=== PATIENT | female | born 1980 | race Caucasian/White ===

== ENCOUNTER 2018-08-22 10:36 | Inpatient (IN) | payer OTHER ==
[~2018-08-22] VITALS: Ht 152.4 cm; Wt 73.7 kg
[~2018-08-22 10:36] MED LIST: CALC-649 PO; FERR27TA PO; PREN-39 PO
[2018-08-22 11:11] VITALS: Ht 152.4 cm; Wt 73.7 kg
[2018-08-22 11:12] VITALS: BP 111/66; PULSE 71; RESP 18
[2018-08-22] MEDS ORDERED: TERBUTALINE 1 MG/ML INJ SC ONE ×2 (12:00→15:00)
[2018-08-22] MEDS: LACTATED RINGER'S 1,000 ML IV SCH (12:29)
[2018-08-22] MEDS ORDERED: MAGNESIUM SULFATE 4 GM/100 ML 100 ML ONE (15:51)
[2018-08-22] MEDS ORDERED: CEFTRIAXONE 1 GM/50 ML (PMX) 50 ML IVPB ONE (16:00)
[2018-08-22] MEDS ORDERED: MAGNESIUM SULFATE 4 GM/100 ML 100 ML IV ONE (16:30)
[2018-08-22] MEDS: BETAMET NA PHOS/AC(6 MG/ML) 2 ML INJ SYG IM SCH (16:36)
--- NOTE | 2018-08-22 17:24 | HP ---
Date/Time of Note Date/Time of Note DATE: 08/22/18 TIME: 17:21 OB - History Hx of Present Free Text/Dictation 37-year-old female 2 para 1 at 34 weeks and 6 days gestation admitted complaining of onset of uterine contractions started 6:00 in the morning She denies rupture of membranes vaginal bleed Chief Complaint: Uterine contractions Last Menstrual Period: Dec 21, 2017 Estimated Due Date: Sep 27, 2018 : 2 Para: 1 Care: Good Care Ultrasounds: Normal mid trimester US Obstetrical Complications: Gestational Diabetes Medical Complications: None Past Family/Social History * Past Medical, Surgical, Family and Obstetric Histories reviewed from [facility]. Blood Type: A+ Rubella: immune RPR/VDRL: Negative GBS Status: Unknown HBsAG: Negative OB Admission Exam Vital Signs Vital Signs Vital Signs Date Temp Pulse Resp B/P (MAP) Pulse Ox O2 O2 Flow FiO2 Time Delivery Rate 08/22/18 98.3 71 18 111/66 Room Air 11:12 (81) Physical Exam HEENT: WNL Heart: Rhythm Normal Lungs: Clear, Equal Abdomen: WNL Extremities: Normal Reflexes: Normal Cervical Dilatation: 2cm Effacement: 50% Station: -3 Membranes: Intact Heart Rate: 140's Accelerations: Accelerations Present Decelerations: No Decelerations Varibility: Marked Contractions on Admission: < 5 Minutes Apart Date/Time Contractions Began: August 22, 2018 at 6 AM Frequency of Contractions: Every 2 to 3 minutes Duration: Over 1 minute Intensity: Mild Last 72 hours Lab Results CBC & BMP 08/22/18 12:39 OB Assessment/Plan Reason for admission: labor Other Assessment: 34+ weeks gestation labor Other plan: Patient was started on magnesium sulfate for neuro prophylaxis Steroids were given Will probably DC patient home following day after receiving the second dose of steroid WILEY MENJIVAR MD Aug 22, 2018 17:24
[2018-08-22] MEDS: MAGNESIUM SULFATE 20 GM/500 ML 500 ML IV SCH (17:26)
[2018-08-22] MEDS ORDERED: SOD CHLORIDE 0.9% 1,000 ML IV SCH (17:47)
--- NOTE | 2018-08-22 22:49 | NSTRPT ---
NST Information Datetime Report Generated by CPN: 08/22/2018 22:48 Datetime: 08/22/2018 08:30 NST Information EGA: 34.6 Test Number: 1 Time on Monitor: 08/22/2018 09:01 Time off Monitor: 08/22/2018 09:29 NST Duration (Min): 28 Reason for NST Other: Size greater than dates Test and Monitor Explained: Monitor Explained; Test Explained; Verbalized Understanding Pulse: 70 Resp: 18 SBP: 98 DBP: 55 Test Evaluation NST Interventions: None Patient States Movement: Present Contraction Frequency: xq3-4/30-60/mild/pain level 2 FHR Baseline : 130 Variability: Moderate 6-25bpm Accelerations: 15X15 Decelerations: None FHR Category: Category I NST Results: Reactive Provider Notified: Dr Courtney _ Dr Minor Comments: To u/s silviano 19.7 cm cephalic EFW 2497 gm, AC 49%, EFW 40% for GA . [address] Quinonez i re US results _ [facility]. [id number] to Dr Minor Re US results _ [facility]. records _ US report faxe d to triage, report to Ethel Martinez RN Electronically Signed By E-Signature: with User ID: [id number]
[2018-08-22] MEDS: AMOXICILLIN/CLAV 500 MG TAB PO SCH (23:44)
[2018-08-23] MEDS: MAGNESIUM SULFATE 20 GM/500 ML 500 ML IV SCH ×2 (03:44→13:33)
[2018-08-23] MEDS: LACTATED RINGER'S 1,000 ML IV SCH (04:35)
[2018-08-23] MEDS: AMOXICILLIN/CLAV 500 MG TAB PO SCH ×2 (06:46→14:24)
[2018-08-23] MEDS ORDERED: ONDANSETRON 4 MG INJ ONE (11:56)
[2018-08-23] MEDS ORDERED: ONDANSETRON 4 MG INJ IV STA (11:58)
[2018-08-23] MEDS ORDERED: ONDANSETRON 4 MG INJ IV PRN (12:00)
[2018-08-23] MEDS ORDERED: NIFEdipine 10 MG CAP ONE (16:29)
[2018-08-23] MEDS: BETAMET NA PHOS/AC(6 MG/ML) 2 ML INJ SYG IM SCH (16:38)
--- NOTE | 2018-08-23 16:53 | DS ---
Date/Time of Note Date/Time of Note DATE: 08/23/18 TIME: 16:52 Obstetrical Discharge Record Final Diagnosis Final Diagnosis: not delivered Other Final Diagnosis labor Complications Tocolytics: Magnesium Sulfate, Terbutaline, Other (Nifedipine) Condition on Discharge Physical Assessment Voiding: Yes Bowel Movement: Yes Breast: Soft, non-tender, Filling Fundus: Other () Abdomen and Incision: Abdomen is gravid fundal height is 36 and heart tones are reactive Calf Tenderness: No Patient Condition: Good WILEY MENJIVAR MD Aug 23, 2018 16:53
[2018-08-23] MEDS ORDERED: NIFE10CA PO (16:54)
--- NOTE | 2018-08-23 16:55 | PD.PPDC ---
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 Provider Information Physician Information 37-year-old female with gestational diabetes admitted for uterine contractions which were stopped using nifedipine and subcutaneous terbutaline Diagnosis [id number] Final Diagnosis: Kqzsq9w contractions Condition [id number] Patient Condition: Xajbl3z Good Diet Bsaxv9Or Diet: Okxbt7i Special Diet Special Diet: 2000-calorie ADA Activity/Restrictions [id number] Activity: Psjjv9z Bedrest May Shower Ddzyf7Uv Restrictions: Dgebd7c Nothing in the Vagina [id number] Return to Work or School: Prqxn0k Nov 21, 2018 Follow-up Follow-up with Physician: 1, Day/Days (In clinic) Return to clinic for Comment: Refer to OB triage in case of onset of uterine contractions and/or a spontaneous rupture of membrane WILEY MENJIVAR MD Aug 23, 2018 16:55
[2018-08-23] MEDS ORDERED: NIFEdipine 10 MG CAP PO SCH (17:00)
== END 2018-08-23 20:11 | disposition home or self-care (01) | DRG 833 ==
LOC: OBT 10:36 → L-D 10:37 → OBT 15:30 → L-D 17:05
PROVIDERS: ADMIT Obstetrics & Gynecology; ATTEND Obstetrics & Gynecology
DX: O60.03 Preterm labor without delivery, third trimester (principal); Z3A.34 34 weeks gestation of pregnancy; O24.419 Gestational diabetes mellitus in pregnancy, unspecified control
CPT/HCPCS: 36415; 76818; 81001; 83735; 85025; 87086; 96360; 96361; 96372; G0463; J0696; J0702; J2405; J3105; J3475; J7030; J7120

== ENCOUNTER 2018-09-19 19:31 | Inpatient (IN) | payer OTHER ==
[~2018-09-19] VITALS: Ht 152.4 cm; Wt 75.9 kg
[~2018-09-19 19:31] MED LIST changes: -CALC-649 PO; +CALC600T24 PO; +FERR134T PO; -FERR27TA PO; +IBUP-1542 PO; +NIFE10CA PO; +PREN-19 PO; -PREN-39 PO
[2018-09-19 20:08] VITALS: BP 111/64; PULSE 74; RESP 15
[2018-09-19] MEDS ORDERED: LACTATED RINGER'S 1,000 ML IV PRN (21:35)
[2018-09-19] MEDS ORDERED: OXYTOCIN 30 UNITS/LR 500 ML IV PRN (22:00)
[2018-09-19] MEDS ORDERED: LIDOCAINE 1% (MPF) 30 ML INJ INJ PRN (22:00)
[2018-09-19] MEDS ORDERED: OXYTOCIN 30 UNITS/LR 500 ML IV SCH ×2 (22:00)
[2018-09-19] MEDS ORDERED: CARBOPROST 250 MCG INJ IM PRN (22:00)
[2018-09-19] MEDS ORDERED: METHYLERGONOVINE 0.2 MG INJ IM PRN (22:00)
[2018-09-19] MEDS ORDERED: IBUPROFEN 600 MG TAB PO PRN (22:00)
[2018-09-19] MEDS ORDERED: MISOPROSTOL 200 MCG TAB PR PRN (22:00)
[2018-09-19] MEDS ORDERED: BUTORPHANOL 2 MG INJ IV PRN ×2 (22:00)
[2018-09-19] MEDS ORDERED: AMPICILLIN 2 GM/NS (PMX) 100 ML IV ONE (22:00)
[2018-09-19] MEDS: LACTATED RINGER'S 1,000 ML IV SCH (22:03)
--- NOTE | 2018-09-19 22:27 | TRIAGE ---
OB Triage Datetime Report Generated by CPN: 09/19/2018 22:26 Datetime: 09/19/2018 22:03 Stage of : Labor Labor Evaluation Frequency: 2-4 Monitor Mode: External Duration (sec)2399: 40-60 Quality: Moderate Pattern: Normal: <= 5 Contractions in 10 Minutes Resting Tone Rosholt: Relaxed Heart Rate FHR Baseline Rate: 130 Monitor Mode: External US FHR Baseline Changes: No Baseline Change Variability: Moderate 6-25 bpm Accelerations: 15X15 Decelerations: None Category: Category I Datetime: 09/19/2018 21:30 Stage of : OB Triage Datetime: 09/19/2018 21:19 Labor Evaluation Frequency: 2-6 Monitor Mode: External Duration (sec)2399: 40-80 Quality: Moderate Pattern: Normal: <= 5 Contractions in 10 Minutes Resting Tone Rosh[place]: Relaxed Heart Rate FHR Baseline Rate: 130 Monitor Mode: External US FHR Baseline Changes: No Baseline Change Variability: Moderate 6-25 bpm Accelerations: 15X15 Decelerations: None Category: Category I Datetime: 09/19/2018 21:13 Vaginal Exam Dilatation (cms): 4.0 Datetime: 09/19/2018 20:51 Stage of : OB Triage Monitor Mode: External Heart Rate FHR Baseline Rate: 135 Monitor Mode: External US Vaginal Exam Dilatation (cms): 4.0 Effacement (%): 70 Station: -3 Exam By: Erasto Zee Membrane Status: Intact Vaginal Bleeding: Small Cervix, Consistency: Soft Cervix, Position: Posterior Presentation 'A': Cephalic Datetime: 09/19/2018 20:41 Labor Evaluation Frequency: 2-6 Monitor Mode: External Duration (sec)2399: 60 Quality: Moderate Pattern: Normal: <= 5 Contractions in 10 Minutes Resting Tone Rosh[place]: Relaxed Heart Rate FHR Baseline Rate: 140 Monitor Mode: External US FHR Baseline Changes: No Baseline Change Variability: Moderate 6-25 bpm Accelerations: 15X15 Decelerations: None Category: Category I Datetime: 09/19/2018 19:48 Stage of : OB Triage Maternal Assessment Level of Consciousness: Keenly Alert, Responsive Headache: Denies Blurred Vision: No Respiratory Effort: Unlabored Nausea/Vomiting: Denies RUQ Epigastric Pain: Denies Facial Edema: None Monitor Mode: External Resting Tone Rosh[place]: Relaxed Heart Rate FHR Baseline Rate: 135 Monitor Mode: External US Pain Assessment Pain Scale: 4 Pain Presence: Intermittent Pain Type: Contraction; Pressure Pain Location: Abdomen Datetime: 09/19/2018 19:30 Time of Arrival: 09/19/2018 19:18 EGA: 38.6 Arrived By: Wheelchair Arrived From: Home Chief Complaint: at 38.6 wks c/o ucs and bleeding Movement: Present Contractions: Regular Time Contractions Began: 09/19/2018 17:00 Contractions: q5 Rupture of Membranes: Denies Vaginal Bleeding: Small Vaginal Discharge: Present Recent Sexual Intercouse: Denies Abdominal Trauma: Not Applicable Patient Complaints: Contractions Time Provider Notified: 09/19/2018 21:30 Provider Notified: Dr Carr Initial Plan: EFM,SVE,UA,URINE CULTURE Datetime: 08/23/2018 20:00 Labor Evaluation Frequency: X1 Monitor Mode: External Duration (sec)2399: 60 Quality: Mild Resting Tone Rosh[place]: Relaxed Contraction Comments: PT DENIES FEELING ANY UC'S Heart Rate FHR Baseline Rate: 125 Monitor Mode: External US Variability: Moderate 6-25 bpm Accelerations: 15X15 Decelerations: None Category: Category I Datetime: 08/23/2018 19:20 Stage of : Antepartum Assessment Type: Ongoing Assessment Maternal Assessment Level of Consciousness: Keenly Alert, Responsive DTR's/Clonus: DTRs 2+; No Clonus Headache: Denies Blurred Vision: No Respiratory Effort: Unlabored; Regular Rhythm; Equal Expansion Breath Sounds, Left: Clear and Equal Breath Sounds, Right: Clear and Equal Nausea/Vomiting: Denies RUQ Epigastric Pain: Denies Lower Extremities Edema: None Degree: None Upper Extremities Edema: None Degree: None Facial Edema: None Temperature Route: Oral Fall Risk Assessment History of Falling: (0) No Secondary Diagnosis: (0) No Ambulatory Aid: (0) Bedrest/Nurse Assist IV Therapy: (0) No Gait: (0) Normal/Bedrest/Immobile Mental Status: (0) Oriented to Own Ability Fall Score: 0 Fall Risk Score Definition: No Risk: No action required Pain Assessment Pain Scale: 0 Pain Presence: None/Denies Pain Type: N/A Pain Goal: 3 Datetime: 08/23/2018 18:48 Maternal Assessment Level of Consciousness: Keenly Alert, Responsive Headache: Denies Blurred Vision: No Nausea/Vomiting: Denies RUQ Epigastric Pain: Denies Facial Edema: None Labor Evaluation Frequency: x1 Monitor Mode: External Duration (sec)2399: 70 Quality: Mild Pattern: Normal: <= 5 Contractions in 10 Minutes Resting Tone Rosh[place]: Relaxed Heart Rate FHR Baseline Rate: 120 Monitor Mode: External US FHR Baseline Changes: No Baseline Change Variability: Moderate 6-25 bpm Accelerations: 15X15 Decelerations: None Pain Assessment Pain Scale: 0 Pain Presence: None/Denies Pain Type: N/A Datetime: 08/23/2018 18:00 Maternal Assessment Level of Consciousness: Keenly Alert, Responsive Headache: Denies Blurred Vision: No Nausea/Vomiting: Denies RUQ Epigastric Pain: Denies Facial Edema: None Labor Evaluation Frequency: x3 Monitor Mode: External Duration (sec)2399: 70-90 Quality: Mild Pattern: Normal: <= 5 Contractions in 10 Minutes Resting Tone Rosh[place]: Relaxed Heart Rate FHR Baseline Rate: 125 Monitor Mode: External US FHR Baseline Changes: No Baseline Change Variability: Moderate 6-25 bpm Accelerations: 15X15 Decelerations: None Comments: PERIODS OF BASELINE 115BPM Pain Assessment Pain Scale: 0 Pain Presence: None/Denies Pain Type: N/A Datetime: 08/23/2018 17:02 Maternal Assessment Level of Consciousness: Keenly Alert, Responsive Headache: Denies Blurred Vision: No Nausea/Vomiting: Denies RUQ Epigastric Pain: Denies Facial Edema: None Labor Evaluation Frequency: x3 Monitor Mode: External Duration (sec)2399: 60-100 Quality: Mild Pattern: Normal: <= 5 Contractions in 10 Minutes Resting Tone Rosh[place]: Relaxed Heart Rate FHR Baseline Rate: 115 Monitor Mode: External US FHR Baseline Changes: No Baseline Change Variability: Moderate 6-25 bpm Accelerations: 15X15 Decelerations: None Pain Assessment Pain Scale: 0 Pain Presence: None/Denies Pain Type: N/A Datetime: 08/23/2018 16:36 Pain Assessment Pain Scale: 0 Pain Presence: None/Denies Pain Type: N/A Datetime: 08/23/2018 16:01 Maternal Assessment Level of Consciousness: Keenly Alert, Responsive Headache: Denies Blurred Vision: No Nausea/Vomiting: Denies RUQ Epigastric Pain: Denies Facial Edema: None Labor Evaluation Frequency: x3 Monitor Mode: External Duration (sec)2399: 60-90 Quality: Mild Pattern: Normal: <= 5 Contractions in 10 Minutes Resting Tone R[place]: Relaxed Heart Rate FHR Baseline Rate: 115 Monitor Mode: External US FHR Baseline Changes: No Baseline Change Variability: Moderate 6-25 bpm Accelerations: 15X15 Decelerations: None Datetime: 08/23/2018 15:01 Maternal Assessment Level of Consciousness: Keenly Alert, Responsive DTR's/Clonus: DTRs 1+; No Clonus Headache: Denies Blurred Vision: No Respiratory Effort: Unlabored Breath Sounds, Left: Clear and Equal Breath Sounds, Right: Clear and Equal Nausea/Vomiting: Denies RUQ Epigastric Pain: Denies Facial Edema: None Labor Evaluation Frequency: x2 Monitor Mode: External Duration (sec)2399: 80 Quality: Mild Pattern: Normal: <= 5 Contractions in 10 Minutes Resting Tone Rosh[place]: Relaxed Heart Rate FHR Baseline Rate: 115 Monitor Mode: External US FHR Baseline Changes: No Baseline Change Variability: Minimal - Undetectable to <=5 bpm Accelerations: 15X15 Decelerations: None Pain Assessment Pain Scale: 0 Pain Presence: None/Denies Pain Type: N/A Datetime: 08/23/2018 14:01 Maternal Assessment Level of Consciousness: Keenly Alert, Responsive Headache: Denies Blurred Vision: No Nausea/Vomiting: Denies RUQ Epigastric Pain: Denies Facial Edema: None Labor Evaluation Frequency: OCC Monitor Mode: External Duration (sec)2399: 50-80 Quality: Mild Pattern: Normal: <= 5 Contractions in 10 Minutes Resting Tone R[place]: Relaxed Heart Rate FHR Baseline Rate: 115 Monitor Mode: External US FHR Baseline Changes: No Baseline Change Variability: Moderate 6-25 bpm Accelerations: 15X15 Decelerations: Variable Pain Assessment Pain Scale: 0 Pain Presence: None/Denies Pain Type: N/A Datetime: 08/23/2018 13:01 Maternal Assessment Level of Consciousness: Keenly Alert, Responsive DTR's/Clonus: DTRs 1+; No Clonus Headache: Denies Blurred Vision: No Respiratory Effort: Unlabored Breath Sounds, Left: Clear and Equal Breath Sounds, Right: Clear and Equal Nausea/Vomiting: Denies RUQ Epigastric Pain: Denies Facial Edema: None Labor Evaluation Frequency: 5-30 Monitor Mode: External Duration (sec)2399: 50-70 Quality: Mild Pattern: Normal: <= 5 Contractions in 10 Minutes Resting Tone [place]: Relaxed Heart Rate FHR Baseline Rate: 115 Monitor Mode: External US FHR Baseline Changes: No Baseline Change Variability: Moderate 6-25 bpm Accelerations: 15X15 Decelerations: None Pain Assessment Pain Scale: 4 Pain Presence: Intermittent Pain Type: Contraction Pain Location: Back Datetime: 08/23/2018 12:02 Nausea/Vomiting: Present Datetime: 08/23/2018 11:26 Maternal Assessment Level of Consciousness: Keenly Alert, Responsive Headache: Denies Blurred Vision: No RUQ Epigastric Pain: Denies Facial Edema: None Labor Evaluation Frequency: x2 Monitor Mode: External Duration (sec)2399: 60 Quality: Mild Pattern: Normal: <= 5 Contractions in 10 Minutes Resting Tone Rosh[place]: Relaxed Heart Rate FHR Baseline Rate: 120 Monitor Mode: External US FHR Baseline Changes: No Baseline Change Variability: Moderate 6-25 bpm Accelerations: 15X15 Decelerations: None Pain Assessment Pain Scale: 3 Pain Presence: Intermittent Pain Type: Contraction Pain Location: Back Datetime: 08/23/2018 11:23 Nausea/Vomiting: Present Datetime: 08/23/2018 11:01 Maternal Assessment Level of Consciousness: Keenly Alert, Responsive DTR's/Clonus: DTRs 1+; No Clonus Headache: Denies Blurred Vision: No Nausea/Vomiting: Denies RUQ Epigastric Pain: Denies Facial Edema: None Labor Evaluation Frequency: OCC Monitor Mode: External Duration (sec)2399: 50 Quality: Mild Pattern: Normal: <= 5 Contractions in 10 Minutes Resting Tone Rosh[place]: Relaxed Heart Rate FHR Baseline Rate: 120 Monitor Mode: External US FHR Baseline Changes: No Baseline Change Variability: Moderate 6-25 bpm Accelerations: 15X15 Pain Assessment Pain Scale: 3 Pain Presence: Intermittent Pain Type: Contraction Pain Location: Back Datetime: 08/23/2018 11:00 Monitor Mode: External US Datetime: 08/23/2018 09:59 Maternal Assessment Level of Consciousness: Keenly Alert, Responsive Headache: Denies Blurred Vision: No Nausea/Vomiting: Denies RUQ Epigastric Pain: Denies Facial Edema: None Labor Evaluation Frequency: x3 Monitor Mode: External Duration (sec)2399: 50-80 Quality: Mild Pattern: Normal: <= 5 Contractions in 10 Minutes Resting Tone Rosh[place]: Relaxed Heart Rate FHR Baseline Rate: 120 Monitor Mode: External US FHR Baseline Changes: No Baseline Change Variability: Moderate 6-25 bpm Accelerations: 15X15 Decelerations: Variable Pain Assessment Pain Scale: 0 Pain Presence: None/Denies Pain Type: N/A Datetime: 08/23/2018 09:04 Maternal Assessment Level of Consciousness: Keenly Alert, Responsive DTR's/Clonus: DTRs 1+; No Clonus Headache: Denies Blurred Vision: No Respiratory Effort: Unlabored Breath Sounds, Left: Clear and Equal Breath Sounds, Right: Clear and Equal Nausea/Vomiting: Denies RUQ Epigastric Pain: Denies Facial Edema: None Labor Evaluation Frequency: x3 Monitor Mode: External Duration (sec)2399: 70 Quality: Mild Pattern: Normal: <= 5 Contractions in 10 Minutes Resting Tone Rosh[place]: Relaxed Heart Rate FHR Baseline Rate: 125 Monitor Mode: External US FHR Baseline Changes: No Baseline Change Variability: Moderate 6-25 bpm Accelerations: 15X15 Comments: FHTS OFF MONITOR DUE TO MOVEMENT AND PT POSITION Pain Assessment Pain Scale: 0 Pain Presence: None/Denies Pain Type: N/A Datetime: 08/23/2018 08:02 Maternal Assessment Level of Consciousness: Keenly Alert, Responsive Headache: Denies Blurred Vision: No Nausea/Vomiting: Denies RUQ Epigastric Pain: Denies Facial Edema: None Labor Evaluation Frequency: x2 Monitor Mode: External Duration (sec)2399: 70 Quality: Mild Pattern: Normal: <= 5 Contractions in 10 Minutes Resting Tone Rosh[place]: Relaxed Heart Rate FHR Baseline Rate: 120 Monitor Mode: External US FHR Baseline Changes: No Baseline Change Variability: Moderate 6-25 bpm Accelerations: 15X15 Decelerations: None Pain Assessment Pain Scale: 0 Pain Presence: None/Denies Pain Type: N/A Datetime: 08/23/2018 07:40 Assessment Type: Ongoing Assessment Maternal Assessment Level of Consciousness: Keenly Alert, Responsive DTR's/Clonus: DTRs 1+; No Clonus Headache: Denies Blurred Vision: No Respiratory Effort: Unlabored; Regular Rhythm; Equal Expansion Breath Sounds, Left: Clear and Equal Breath Sounds, Right: Clear and Equal Nausea/Vomiting: Denies RUQ Epigastric Pain: Denies Lower Extremities Edema: None Degree: None Upper Extremities Edema: None Degree: None Facial Edema: None Fall Risk Assessment History of Falling: (0) No Secondary Diagnosis: (0) No Ambulatory Aid: (0) Bedrest/Nurse Assist IV Therapy: (20) Yes (Annotations: INFUSING MAGNESIUM SULFATE @2GM/HR; LR @75ML/HR) Gait: (0) Normal/Bedrest/Immobile Mental Status: (0) Oriented to Own Ability Fall Score: 20 Fall Risk Score Definition: No Risk: No action required Datetime: 08/23/2018 07:34 Monitor Mode: External US Datetime: 08/23/2018 07:33 Monitor Mode: External US Pain Assessment Pain Scale: 0 Pain Presence: None/Denies Pain Type: N/A Datetime: 08/23/2018 06:46 Stage of : Antepartum Labor Evaluation Frequency: Occasional Monitor Mode: External Resting Tone Rosh[place]: Relaxed Heart Rate FHR Baseline Rate: 125 Monitor Mode: External US Variability: Moderate 6-25 bpm Accelerations: 15X15 Decelerations: None Category: Category I Pain Assessment Pain Scale: 0 Pain Presence: None/Denies Pain Type: N/A Pain Relief Measures: Comfort Measures Datetime: 08/23/2018 06:00 Stage of : Antepartum Labor Evaluation Frequency: Occasional Monitor Mode: External Resting Tone Rosh[place]: Relaxed Heart Rate FHR Baseline Rate: 120 Monitor Mode: External US Variability: Moderate 6-25 bpm Accelerations: 15X15 Decelerations: None Category: Category I Pain Assessment Pain Scale: 0 Pain Presence: None/Denies Pain Type: N/A Pain Relief Measures: Comfort Measures Datetime: 08/23/2018 05:30 Maternal Assessment Level of Consciousness: Keenly Alert, Responsive DTR's/Clonus: DTRs 2+; No Clonus Headache: Denies Breath Sounds, Left: Clear and Equal Breath Sounds, Right: Clear and Equal Nausea/Vomiting: Denies RUQ Epigastric Pain: Denies Datetime: 08/23/2018 04:56 Stage of : Antepartum Labor Evaluation Frequency: OCCASIONAL Monitor Mode: External Resting Tone Rosh[place]: Relaxed Heart Rate FHR Baseline Rate: 125 Monitor Mode: External US Variability: Moderate 6-25 bpm Accelerations: 15X15 Decelerations: None Category: Category I Pain Assessment Pain Scale: 0 Pain Presence: None/Denies Pain Type: N/A Pain Relief Measures: Comfort Measures Datetime: 08/23/2018 04:40 Stage of : Antepartum Datetime: 08/23/2018 04:00 Labor Evaluation Frequency: Occasional Monitor Mode: External Resting Tone [place]: Relaxed Heart Rate FHR Baseline Rate: 125 Monitor Mode: External US Variability: Moderate 6-25 bpm Accelerations: 15X15 Decelerations: None Category: Category I Pain Assessment Pain Scale: 0 Pain Presence: None/Denies Pain Type: N/A Pain Relief Measures: Comfort Measures Datetime: 08/23/2018 03:30 Maternal Assessment Level of Consciousness: Keenly Alert, Responsive DTR's/Clonus: DTRs 2+; No Clonus Headache: Denies Breath Sounds, Left: Clear and Equal Breath Sounds, Right: Clear and Equal Nausea/Vomiting: Denies RUQ Epigastric Pain: Denies Datetime: 08/23/2018 03:28 Comments: Loss of contact due to patient sitting up in a chair Datetime: 08/23/2018 03:00 Stage of : Antepartum Labor Evaluation Frequency: Occasional Monitor Mode: External Resting Tone R[place]: Relaxed Heart Rate FHR Baseline Rate: 125 Monitor Mode: External US Variability: Moderate 6-25 bpm Accelerations: 15X15 Decelerations: None Category: Category I Pain Presence: None/Denies Pain Type: N/A Pain Relief Measures: Comfort Measures Datetime: 08/23/2018 01:54 Labor Evaluation Frequency: Occasional Monitor Mode: External Resting Tone R[place]: Relaxed Heart Rate FHR Baseline Rate: 130 Monitor Mode: External US Variability: Moderate 6-25 bpm Accelerations: 15X15 Decelerations: None Category: Category I Pain Assessment Pain Scale: 0 Pain Presence: None/Denies Pain Type: N/A Pain Relief Measures: Comfort Measures Datetime: 08/23/2018 01:30 Maternal Assessment Level of Consciousness: Keenly Alert, Responsive DTR's/Clonus: DTRs 2+; No Clonus Headache: Denies Breath Sounds, Left: Clear and Equal Breath Sounds, Right: Clear and Equal Nausea/Vomiting: Denies RUQ Epigastric Pain: Denies Datetime: 08/23/2018 01:01 Stage of : Antepartum Monitor Mode: External Resting Tone R[place]: Relaxed Heart Rate FHR Baseline Rate: 130 Monitor Mode: External US Variability: Moderate 6-25 bpm Accelerations: 15X15 Decelerations: None Datetime: 08/23/2018 00:31 Stage of : Antepartum Comments: Loss of contact due to patient sitting up in a chair. Datetime: 08/22/2018 23:45 Stage of : Antepartum Datetime: 08/22/2018 23:30 Stage of : Labor Maternal Assessment Level of Consciousness: Keenly Alert, Responsive DTR's/Clonus: DTRs 2+; No Clonus Headache: Denies Breath Sounds, Left: Clear and Equal Breath Sounds, Right: Clear and Equal Nausea/Vomiting: Denies RUQ Epigastric Pain: Denies Labor Evaluation Frequency: 2-6 Monitor Mode: External Duration (sec)2399: 60-100 Resting Tone Rosh[place]: Relaxed Heart Rate FHR Baseline Rate: 135 Monitor Mode: External US Variability: Moderate 6-25 bpm Accelerations: 15X15 Decelerations: None Category: Category I Datetime: 08/22/2018 22:30 Stage of : Antepartum Labor Evaluation Frequency: 2-6 Monitor Mode: External Duration (sec)2399: 50-90 Resting Tone Rosh[place]: Relaxed Heart Rate FHR Baseline Rate: 130 Monitor Mode: External US Variability: Moderate 6-25 bpm Accelerations: 15X15 Decelerations: None Category: Category I Datetime: 08/22/2018 21:30 Stage of : Antepartum Maternal Assessment Level of Consciousness: Keenly Alert, Responsive DTR's/Clonus: DTRs 2+; No Clonus Headache: Denies Breath Sounds, Left: Clear and Equal Breath Sounds, Right: Clear and Equal Nausea/Vomiting: Denies RUQ Epigastric Pain: Denies Datetime: 08/22/2018 20:32 Stage of : Antepartum Labor Evaluation Frequency: 2-5 Monitor Mode: External Duration (sec)2399: 50-100 Resting Tone Rosh[place]: Relaxed Heart Rate FHR Baseline Rate: 130 Monitor Mode: External US Variability: Moderate 6-25 bpm Accelerations: 15X15 Decelerations: None Category: Category I Datetime: 08/22/2018 19:30 Stage of : Antepartum Assessment Type: Ongoing Assessment Maternal Assessment Level of Consciousness: Keenly Alert, Responsive DTR's/Clonus: DTRs 2+; No Clonus Headache: Denies Blurred Vision: No Respiratory Effort: Unlabored; Regular Rhythm; Equal Expansion Breath Sounds, Left: Clear and Equal Breath Sounds, Right: Clear and Equal Nausea/Vomiting: Denies RUQ Epigastric Pain: Denies Lower Extremities Edema: None Degree: None Upper Extremities Edema: None Degree: None Facial Edema: None Fall Risk Assessment History of Falling: (0) No Secondary Diagnosis: (0) No Ambulatory Aid: (0) Bedrest/Nurse Assist Gait: (0) Normal/Bedrest/Immobile Mental Status: (0) Oriented to Own Ability Labor Evaluation Frequency: 4-5 Monitor Mode: External Duration (sec)2399: 50-80 Resting Tone Rosh[place]: Relaxed Heart Rate FHR Baseline Rate: 130 Monitor Mode: External US Variability: Moderate 6-25 bpm Decelerations: None Category: Category I Datetime: 08/22/2018 19:07 Assessment Type: Ongoing Assessment Datetime: 08/22/2018 18:30 Maternal Assessment Level of Consciousness: Keenly Alert, Responsive DTR's/Clonus: DTRs 2+ Headache: Denies Blurred Vision: No Respiratory Effort: Unlabored Nausea/Vomiting: Denies RUQ Epigastric Pain: Denies Facial Edema: None Labor Evaluation Frequency: 7-12 Monitor Mode: External Duration (sec)2399: 20-40 Quality: Mild Resting Tone Rosh[place]: Relaxed Contraction Comments: SPACING OUT, MAGNESIUM IS WORKING Heart Rate FHR Baseline Rate: 135 Monitor Mode: External US Variability: Moderate 6-25 bpm Accelerations: 15X15 Decelerations: None Category: Category I Comments: DR DIALLO HERE TO SEE PT Pain Assessment Pain Scale: 0 Pain Presence: None/Denies Pain Type: N/A Pain Goal: 3 Pain Relief Measures: Comfort Measures Pain Assessment Comments: "i DON'T FEEL ANY UCS" Datetime: 08/22/2018 17:30 Maternal Assessment Level of Consciousness: Keenly Alert, Responsive DTR's/Clonus: DTRs 2+ Headache: Denies Blurred Vision: No Respiratory Effort: Unlabored Nausea/Vomiting: Denies RUQ Epigastric Pain: Denies Facial Edema: None Labor Evaluation Frequency: 6-9 Monitor Mode: External Duration (sec)2399: 20-30 Quality: Mild Resting Tone Rosh[place]: Relaxed Heart Rate FHR Baseline Rate: 145 Monitor Mode: External US Variability: Moderate 6-25 bpm Accelerations: 15X15 Decelerations: None Category: Category I Pain Assessment Pain Scale: 0 Pain Presence: None/Denies Pain Type: N/A Pain Goal: 3 Pain Relief Measures: Comfort Measures Membrane Status: Intact Datetime: 08/22/2018 16:38 Maternal Assessment Level of Consciousness: Keenly Alert, Responsive DTR's/Clonus: DTRs 2+ Headache: Denies Blurred Vision: No Respiratory Effort: Unlabored Nausea/Vomiting: Denies RUQ Epigastric Pain: Denies Facial Edema: None Labor Evaluation Frequency: 3-6 Monitor Mode: External Duration (sec)2399: 30-50 Quality: Mild Resting Tone Rosh[place]: Relaxed Heart Rate FHR Baseline Rate: 135 Monitor Mode: External US Variability: Moderate 6-25 bpm Accelerations: 15X15 Decelerations: None Category: Category I Pain Assessment Pain Scale: 0 Pain Presence: None/Denies Pain Type: N/A Pain Goal: 3 Datetime: 08/22/2018 15:00 Stage of : OB Triage Maternal Assessment Level of Consciousness: Keenly Alert, Responsive Labor Evaluation Frequency: IRREGULAR Monitor Mode: External Duration (sec)2399: 50-70 Quality: Mild Resting Tone Rosh[place]: Relaxed Heart Rate FHR Baseline Rate: 135 Monitor Mode: External US Variability: Moderate 6-25 bpm Accelerations: 15X15 Decelerations: None Category: Category I Pain Assessment Pain Scale: 1 Pain Presence: Intermittent Pain Type: Cramping Pain Location: Abdomen Pain Goal: 3 Membrane Status: Intact Vaginal Bleeding: None Datetime: 08/22/2018 14:15 Labor Evaluation Frequency: 3-4 Pattern: Normal: <= 5 Contractions in 10 Minutes Contraction Comments: irreg. pattern Heart Rate FHR Baseline Rate: 135 Monitor Mode: External US Variability: Moderate 6-25 bpm Accelerations: 15X15 Category: Category I Datetime: 08/22/2018 13:56 Vaginal Exam Dilatation (cms): 2.0 Effacement (%): 40 Station: -2 Exam By: CLAUDIO Vaginal Bleeding: Scant Cervix, Consistency: Moderate Cervix, Position: Midposition Datetime: 08/22/2018 13:00 Stage of : OB Triage Maternal Assessment Level of Consciousness: Keenly Alert, Responsive Labor Evaluation Frequency: 7UC/HR Monitor Mode: External Duration (sec)2399: 30-100 Quality: Mild Resting Tone Rosh[place]: Relaxed Heart Rate FHR Baseline Rate: 135 Monitor Mode: External US Variability: Moderate 6-25 bpm Accelerations: 15X15 Decelerations: None Category: Category I Pain Assessment Pain Scale: 1 Pain Presence: Intermittent Pain Type: Cramping Pain Location: Abdomen Pain Goal: 3 Membrane Status: Intact Vaginal Bleeding: None Datetime: 08/22/2018 12:00 Stage of : OB Triage Maternal Assessment Level of Consciousness: Keenly Alert, Responsive Labor Evaluation Frequency: 2-3 Monitor Mode: External Duration (sec)2399: 50-90 Quality: Mild Resting Tone Rosh[place]: Relaxed Heart Rate FHR Baseline Rate: 135 Monitor Mode: External US Variability: Moderate 6-25 bpm Accelerations: 15X15 Decelerations: None Category: Category I Pain Assessment Pain Scale: 1 Pain Presence: Intermittent Pain Type: Cramping Pain Location: Abdomen Pain Goal: 3 Membrane Status: Intact Vaginal Bleeding: None Datetime: 08/22/2018 11:08 Assessment Type: Triage Maternal Assessment Level of Consciousness: Keenly Alert, Responsive DTR's/Clonus: DTRs 2+; No Clonus Headache: Denies Blurred Vision: No Respiratory Effort: Unlabored; Regular Rhythm; Equal Expansion Breath Sounds, Left: Clear and Equal Breath Sounds, Right: Clear and Equal Nausea/Vomiting: Denies RUQ Epigastric Pain: Denies Lower Extremities Edema: None Degree: None Upper Extremities Edema: None Degree: None Facial Edema: None Fall Risk Assessment History of Falling: (0) No Secondary Diagnosis: (0) No Ambulatory Aid: (0) Bedrest/Nurse Assist IV Therapy: (0) No Gait: (0) Normal/Bedrest/Immobile Mental Status: (0) Oriented to Own Ability Fall Score: 0 Fall Risk Score Definition: No Risk: No action required Datetime: 08/22/2018 11:07 Monitor Mode: External Monitor Mode: External US Datetime: 08/22/2018 10:59 Time of Arrival: 08/22/2018 10:31 EGA: 34.6 Arrived By: Ambulatory Arrived From: Other Unit in Hospital Chief Complaint: PT. S[facility] Movement: Present Contractions: Irregular Rupture of Membranes: Denies Vaginal Bleeding: None Vaginal Discharge: Denies Recent Sexual Intercouse: Denies Abdominal Trauma: Not Applicable Patient Complaints: Contractions; Cramping; Back Pain Time Provider Notified: 08/22/2018 11:59 Provider Notified: IMANI Initial Plan: CBC/SVE/IV HYDRATION/TERB/
[2018-09-19] MEDS ORDERED: MINERAL OIL LIGHT 10 ML VIAL TOP PRN (22:30)
[2018-09-20] MEDS: LACTATED RINGER'S 1,000 ML IV SCH ×2 (01:33→10:53)
[2018-09-20] MEDS: AMPICILLIN 1 GM/NS (PMX) 50 ML IV SCH ×5 (02:02→18:23)
[2018-09-20] MEDS ORDERED: OXYTOCIN 30 UNITS/LR 500 ML IV SCH (14:00)
--- NOTE | 2018-09-20 17:24 | HP ---
Date/Time of Note Date/Time of Note DATE: 09/20/18 TIME: 17:21 OB - History Hx of Present Free Text/Dictation 37-year-old female 2 para 1 at 39 weeks gestation admitted complaining of onset of uterine contractions started few hours prior to admission Patient contractions were mild but every 2 to 3 minutes Last Menstrual Period: Dec 21, 2017 Estimated Due Date: Sep 27, 2018 : 2 Para: 1 Care: Good Care Ultrasounds: Normal mid trimester US Obstetrical Complications: None, Other (Advanced maternal age) Medical Complications: None Past Family/Social History * Past Medical, Surgical, Family and Obstetric Histories reviewed from chart. Blood Type: A+ Rubella: immune RPR/VDRL: Negative HBsAG: Negative OB Admission Exam Vital Signs Vital Signs Vital Signs Date Temp Pulse Resp B/P (MAP) Pulse Ox O2 O2 Flow FiO2 Time Delivery Rate 09/19/18 98.1 74 15 111/64 Room Air 20:08 (80) Physical Exam HEENT: WNL Heart: Rhythm Normal Lungs: Clear, Equal Abdomen: WNL Extremities: Normal Reflexes: Normal Cervical Dilatation: 3cm Effacement: 75% Station: -3 Membranes: Intact Heart Rate: 140's Accelerations: Accelerations Present Decelerations: No Decelerations Varibility: Marked Contractions on Admission: < 5 Minutes Apart Date/Time Contractions Began: 1700 p.m. of 729 Frequency of Contractions: Every 3 to 4 minutes Duration: Over 32nd Intensity: Mild Last 72 hours Lab Results CBC & BMP 09/19/18 22:03 OB Assessment/Plan Other Assessment: Term gestation in labor contractions Other plan: Continue with a spontaneous labor and augment labor if necessary WILEY MENJIVAR MD Sep 20, 2018 17:24
[2018-09-20] MEDS ORDERED: KETOROLAC 30 MG INJ IV STA (19:36)
[2018-09-20] MEDS ORDERED: ACETAMINOPHEN 500 MG TAB PO STA (19:36)
--- NOTE | 2018-09-20 19:36 | LDN ---
Date/Time of Note Date/Time of Note DATE: 09/20/18 TIME: 19:10 Delivery Summary Normal spontaneous vaginal delivery of a viable over intact perineum Weeks of Gestation 39 weeks Placenta Delivered: Spontaneously, Intact & Complete Meconium: none Episiotomy: No Perineal laceration: 0 Laceration repair: Small vestibular laceration was repaired using 3-0 chromic on a small half needle Anesthesia type: Local Estimated blood loss: 200 Sponge & Needle done & correct: Yes All needle counts correct: Yes Any foreign bodies felt in the: No Delivery Information Sex Infant Sex: male Apgars 1 Minute: 9 5 Minute: 9 Suctioning Nose & mouth suctioned at arabella: Yes Delee suction performed: No Umbilical Cord Umbilical cord with: 3 Vessels Cord presentations: no nuchal cord Cord Blood was obtained: Yes Mother & Baby Disposition Disposition Mom & Baby to Maternity; Good: Yes (Mother and baby were recovering in good condition) Mom transferred to: Other (Maternity floor) Baby to NICU: No WILEY MENJIVAR MD Sep 20, 2018 19:20
[2018-09-20 20:40] VITALS: BP 114/57; PULSE 74; RESP 19
[2018-09-20] MEDS ORDERED: LANOLIN HPA 1 PKT TOP PRN (22:30)
[2018-09-20] MEDS ORDERED: OXYTOCIN 30 UNITS/LR 500 ML IV PRN (22:30)
[2018-09-20] MEDS ORDERED: MISOPROSTOL 200 MCG TAB PR PRN (22:30)
[2018-09-20] MEDS ORDERED: DIBUCAINE 1% 30 GM OINT TOP PRN (22:30)
[2018-09-20] MEDS ORDERED: CARBOPROST 250 MCG INJ IM PRN (22:30)
[2018-09-20] MEDS ORDERED: METHYLERGONOVINE 0.2 MG INJ IM PRN (22:30)
[2018-09-20] MEDS: MAGNESIUM HYDROXIDE 30ML CUP PO SCH (22:30)
[2018-09-20] MEDS ORDERED: BENZOCAINE 20% 56 ML SPRAY TOP PRN (22:30)
[2018-09-20] MEDS ORDERED: HYDROCODONE/APAP (5/325) TAB PO PRN ×2 (22:30)
[2018-09-20] MEDS ORDERED: WITCH HAZEL/GLYCERIN PAD PR PRN (22:30)
[2018-09-20] MEDS ORDERED: ZOLPIDEM 5 MG TAB PO PRN (22:30)
[2018-09-21] MEDS: IBUPROFEN 600 MG TAB PO SCH ×5 (00:01→23:55)
[2018-09-21] MEDS: LACTATED RINGER'S 1,000 ML IV* SCH ×4 (00:01→22:19)
[2018-09-21 04:00] VITALS: BP 105/68; PULSE 66; RESP 19
[2018-09-21 08:30] VITALS: BP 101/61; PULSE 61; RESP 18
[2018-09-21] MEDS: MAGNESIUM HYDROXIDE 30ML CUP PO SCH ×2 (11:35→21:47)
[2018-09-21] MEDS: SENNA/DOCUSATE NA (8.6MG/50MG) TAB PO SCH ×2 (11:36→21:47)
--- NOTE | 2018-09-21 13:52 | DS ---
Date/Time of Note Date/Time of Note Home today or next day DATE: 09/21/18 TIME: 13:51 Obstetrical Discharge Record Final Diagnosis Final Diagnosis: Term delivered Other Final Diagnosis Status post vaginal delivery Vaginal Delivery Obstetrical Delivery: Spontaneous, Laceration, Repaired Complications Augmentation: Yes Condition on Discharge Physical Assessment Last Vitals: See nurse's notes Voiding: Yes Bowel Movement: Yes Breast: Soft, non-tender, Filling Fundus: Firm Abdomen and Incision: Abdomen is soft with firm fundus Episiotomy: Perineum is clean Calf Tenderness: No Patient Condition: Good WILEY MENJIVAR MD Sep 21, 2018 13:52
[2018-09-21 16:11] VITALS: BP 119/60; PULSE 75; RESP 18
--- NOTE | 2018-09-21 19:58 | PD.PPDC ---
HOME HEALTH SPECIALIST Discharge Instruction Provider Information Physician Information 37-year-old female had vaginal delivery Diagnosis [id number] Final Diagnosis: Eqnhm0g Status post vaginal delivery Condition Luihm2Ot Patient Condition: Ciflq4o Good Diet Vweno8Ei Diet: Bvxuj3u Resume Regular Diet Activity/Restrictions [id number] Activity: Vanhj4s Normal Activity May Shower Rhoeo6Ds Restrictions: Hagwb6c Nothing in the Vagina [id number] Return to Work or School: Itemt1e Nov 07, 2018 Follow-up Follow-up with Physician: 2, 4, Week/Weeks (In hospital) Return to clinic for Zdolc2Cv OB Instructions: Aojzo7v Breast Tenderness Depression Comment: Pelvic rest for 6 weeks WILEY MENJIVAR MD Sep 21, 2018 19:58
[2018-09-21 20:10] VITALS: BP 106/72; RESP 18
--- NOTE | 2018-09-21 20:49 | DELSUM ---
Delivery Summary A-C Datetime Report Generated by CPN: 09/21/2018 20:48 DELIVERY PERSONNEL Railroad Signal Technician: Sebunnya, Phoebe MATERNAL INFORMATION Delivery Anesthesia: None Medications in Delivery: 30 UNIT PITOCIN LR 500ML Delivery QBL (ml): 200 Placenta Cultured: No Maternal Complications: Other Other Maternal Complications: AMA LABOR SUMMARY EDC: 09/27/2018 00:00 No. Babies in Womb: 1 Attempted: No Labor Anesthesia: None LABOR INFORMATION Reason for Induction: Not Applicable Onset of Labor: 09/19/2018 17:00 Complete Dilatation: 09/20/2018 18:48 Group B Beta Strep: Positive Antibiotics # of Doses: 6 Antibiotics Time of Last Dose: 09/20/2018 18:23 Steroids Given: Full Course Reason Steroids Not Administered: Not Applicable MEMBRANES Membranes Rupture Method: Artificial Rupture of Membranes: 09/20/2018 17:12 Length of Rupture (hr): 1.63 Amniotic Fluid Color: Clear Amniotic Fluid Amount: Moderate Amniotic Fluid Odor: Normal STAGES OF LABOR Stage 1 hr: 25 Stage 1 min: 48 Stage 2 hr: 0 Stage 2 min: 2 Stage 3 hr: 0 Stage 3 min: 2 Total Time in Labor hr: 25 Total Time in Labor min: 52 VAGINAL DELIVERY Episiotomy: None Laceration Extension: N/A Laceration Type: None Other Laceration: vestibule Laceration Repair: Yes Initial Vag Sponge Count: 10 Final Vag Sponge Count: 10 Initial Vag Sharps Count: 2 Final Vag Sharps Count: 2 Sponge Count Correct: Yes; Vaginal Sweep Performed Sharps Count Correct: Yes BABY A INFORMATION Delivery Date/Time: 09/20/2018 18:50 Method of Delivery: Vaginal Born in Route : No : N/A Forceps: N/A Vacuum Extraction: N/A Shoulder Dystocia : N/A SHOULDER DYSTOCIA BABY A Delivery Date/Time: 09/20/2018 18:50 PRESENTATION/POSITION BABY A Presentation: Cephalic Cephalic Presentation: Vertex Vertex Position: Left Occipital Anterior Breech Presentation: N/A PLACENTA INFORMATION BABY A Placenta Delivery Time : 09/20/2018 18:52 Placenta Method of Delivery: Spontaneous Placenta Status: Delivered SCORES BABY A Heart Rate 1 min: >100 bpm Resp Effort 1 min: Good Cry Reflex Irritability 1 min: Cough/Sneeze/Pulls Away Muscle Tone 1 min: Active Motion Color 1 min: Body [place], Extremit Blue Resuscitation Effort 1 min: Tactile Stimulation SCORE 1 MIN: 9 Heart Rate 5 min: >100 bpm Resp Effort 5 min: Good Cry Reflex Irritability 5 min: Cough/Sneeze/Pulls Away Muscle Tone 5 min: Active Motion Color 5 min: Body [place], Extremit Blue Resuscitation Effort 5 min: Tactile Stimulation SCORE 5 MIN: 9 INFORMATION BABY A Gestational Age at Delivery: 39.0 Gestational Status: Full Term- 39- 40.6 Weeks Infant Outcome : Liveborn, with signs of life Condition : Stable Infant Sex: Male IDENTIFICATION/MEDS BABY A ID Band Number: [id number] ID Band Location: Right Leg; Left Arm Sensor Applied: Yes Sensor Number: [id number] Sensor Location : Cord Clamp Vitamin K Given : Not Given Erythromycin Given: Not Given WEIGHT/LENGTH BABY A Birthweight (gm): 3515 Weight (lb): 7 Weight (oz): 12 Length (in): 18.50 Infant Length (cm): 46.99 CORD INFORMATION BABY A No. Cord Vessels: 3 Nuchal Cord : N/A Nuchal Cord- Other: 0 Cord Blood Taken: Yes Banking/Donate Info: NO Suction: Mouth; Nose ASSESSMENT BABY A Complications: Multiple Variable Decels
[2018-09-22 03:41] VITALS: BP 110/50; PULSE 67; RESP 18
[2018-09-22] MEDS: IBUPROFEN 600 MG TAB PO SCH ×2 (05:38→12:23)
[2018-09-22] MEDS: LACTATED RINGER'S 1,000 ML IV* SCH (06:19)
[2018-09-22 08:45] VITALS: BP 108/57; PULSE 68; RESP 18
[2018-09-22] MEDS ORDERED: MEASLES,MUMPS,RUBELLA VACCINE INJ SC* ONE (09:00)
[2018-09-22] MEDS ORDERED: DIPHTH/TET/ACEL PERTUSS (ADULT) 0.5 ML VIAL IM* ONE (09:00)
[2018-09-22] MEDS ORDERED: VARICELLA VACCINE LIVE/PF 1,350 UNIT/0.5 ML ML SC* ONE (09:00)
[2018-09-22] MEDS: MAGNESIUM HYDROXIDE 30ML CUP PO SCH (09:09)
[2018-09-22] MEDS: SENNA/DOCUSATE NA (8.6MG/50MG) TAB PO SCH (09:09)
== END 2018-09-22 14:38 | disposition home or self-care (01) | DRG 807 ==
LOC: OBT 19:31 → L-D 19:32 → OBT 21:30 → L-D 22:58 → MS1 09-20 20:44
PROVIDERS: ADMIT Obstetrics & Gynecology; ATTEND Obstetrics & Gynecology
PROC: 10E0XZZ Delivery of Products of Conception, External Approach (ICD-10-PCS; principal; 2018-09-20)
PROC: 0UQMXZZ Repair Vulva, External Approach (ICD-10-PCS; 2018-09-20)
DX: O71.89 Other specified obstetric trauma (principal); Z37.0 Single live birth; Z3A.39 39 weeks gestation of pregnancy
CPT/HCPCS: 76815; 81001; 85025; 85610; 85730; 86592; 86850; 86900; 86901; 87086; 87340; 90715; 90716; G0463; J0290; J0595; J2590; J7120